=== PATIENT | male | born 2000 | race Caucasian/White ===

== ENCOUNTER 2023-11-24 21:18 | Emergency (ER) | payer SELFPAY ==
--- NOTE | 2023-11-24 21:39 | NUR.NOTE ---
2133: Pt arrived to ER w/ concern for dislocated R shoulder s/p fall while skiing. When this RN unable to provide distinct time frame for being seen pt stated he had to leave [place] to work tomorrow AM so he would prefer to leave without being seen and 'try my luck elsewhere'
--- NOTE | 2023-11-24 21:44 | W.ED.FU ---
Date of service: 11/24/23 Time of Service: 21:44 Follow Up Plan: Patient arrived on my shift in the emergency department. He reportedly had shoulder pain. I ordered an x-ray. I had not seen the patient but he left prior to being seen. I did not evaluate the patient nor see him during his ED stay.
== END 2023-11-24 21:42 ==
LOC: ER 21:46
DX: Z53.21 Procedure and treatment not carried out due to patient leaving prior to being seen by health care provider (principal)